=== PATIENT | female | born 2000 | race African-American/Black ===

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

== ENCOUNTER 2023-10-21 01:29 | Emergency (ER) | payer MEDICAID, OTHER ==
[~2023-10-21] VITALS: Ht 157.5 cm; Wt 61.0 kg
[~2023-10-21 01:29] MED LIST changes: +ACET-2708 MT; +HYDR-4001 MT; +NAPR-1176 MT
[2023-10-21 01:49] VITALS: O2SAT 100
[2023-10-21] MEDS ORDERED: TC1C15 TP (04:16)
[2023-10-21 04:35] VITALS: BP 122/64; PULSE 80; RESP 18; TEMP 98.3
== END 2023-10-21 05:10 | disposition home or self-care (01) ==
LOC: ER 01:39
DX: L30.9 Dermatitis, unspecified (principal); R21 Rash and other nonspecific skin eruption; D64.9 Anemia, unspecified; Z98.890 Other specified postprocedural states; Z79.899 Other long term (current) drug therapy
CPT/HCPCS: 99283